=== PATIENT | male | born 1945 | race Hispanic/Latino ===

== ENCOUNTER 2017-08-14 23:44 | Emergency (ER) | payer BC ==
[2017-08-14 23:44] VITALS: BMI 10.8
[2017-08-14 23:48] VITALS: BP 143/77; PULSE 101; RESP 16; O2SAT 96
--- NOTE | 2017-08-15 00:31 | ED PDOC ---
HPI: Trauma/Fall - HPI Time Seen by Provider: 08/14/17 23:50 Chief Complaint (Nursing): Trauma Past Medical History Vital Signs: Last Vital Signs Temp Pulse 101 H 08/14/17 23:45 Resp 16 08/14/17 23:45 BP 143/77 08/14/17 23:45 Pulse Ox 96 08/14/17 23:45 - Medical History PMH: Arthritis, HTN Denies: Chronic Kidney Disease - Surgical History Surgical History: Appendectomy - Home Medications Home Medications: Ambulatory Orders Medication Instructions Recorded Acetaminophen/Oxycodone Hydr 1 tab PO Q4H PRN #0 tab 08/20/14 [Percocet 10/325 mg Tab] Atenolol [Tenormin] 50 mg PO Q48H #0 tab 08/20/14 Atenolol [Tenormin] 100 mg PO Q48H #0 tab 08/20/14 Ca Pantothenate/Folic Acid/V [Once 1 tab PO DAILY #0 tab 08/20/14 Daily Multi-Vitamin] Docusate Sodium [Colace] 100 mg PO BID #0 sgl 08/20/14 Finasteride 5 mg PO DAILY #0 tab 08/20/14 Ibuprofen [Motrin Tab] 800 mg PO TID PRN #0 tab 08/20/14 Liver Function Complete 1 tab PO DAILY #0 08/20/14 Milk Thistle Extract 250 mg PO DAILY #0 cap 08/20/14 [place]-3 Fatty Acids/Fish Oil [Fish 2,000 mg PO DAILY #0 sgl 08/20/14 Oil 1,000 mg Capsule] Prevagen 1 cap PO DAILY #0 08/20/14 Silodosin [Rapaflo] 8 mg PO DAILY #0 cap 08/20/14 Alfuzosin HCl [Uroxatral] 10 mg PO HS 08/05/15 Clopidogrel [Plavix] 75 mg PO DAILY #0 tab 08/07/15 Meclizine [Antivert] 25 mg PO Q8H #0 tab 08/07/15 Tamsulosin [Flomax] 0.8 mg PO HS #0 cap 08/07/15 traMADol [Ultram] 50 mg PO Q4 PRN #0 tab 08/07/15 - Allergies Allergies/Adverse Reactions: Allergies Allergy/AdvReac Type Severity Reaction Status Date / Time aspirin Allergy ANAPHYLAXIS Verified 08/15/17 00:05 Penicillins Allergy RASH Verified 08/15/17 00:05 - ECG O2 Sat by Pulse Oximetry: 96 Medical Decision Making Medical Decision Making: Time: 23:58 Plan: - CT Maxillofacial w/o Contrast Scribe Attestation: Documented by Akash Saenz, acting as a scribe for Ray Camacho MD Provider Scribe Attestation: All medical record entries made by the Scribe were at my direction and personally dictated by me. I have reviewed the chart and agree that the record accurately reflects my personal performance of the history, physical exam, medical decision making, and the department course for this patient. I have also personally directed, reviewed, and agree with the discharge instructions and disposition. Disposition - Disposition
[2017-08-15] MEDS ORDERED: Lidocaine 2% w Epi 1:100,000 Inj IJ ONE (00:51)
--- NOTE | 2017-08-15 01:18 | ED PDOC ---
HPI: Trauma/Fall - HPI Time Seen by Provider: 08/14/17 23:50 Chief Complaint (Nursing): Trauma Chief Complaint (Provider): Trauma History Per: Patient History/Exam Limitations: no limitations Onset/Duration Of Symptoms: Days (x tonight) Additional Complaint(s): Bryce is a 72 year old male who presents to the emergency department with facial injury s/p fall. Patient states he tripped over dog and fell on his nose and was unable to brace himself on time. Denies loss of consciousness, vomiting and any other injuries. PMD: Kuldip Rand Past Medical History Reviewed: Historical Data, Nursing Documentation, Vital Signs Vital Signs: Last Vital Signs Temp Pulse 101 H 08/14/17 23:45 Resp 16 08/14/17 23:45 BP 143/77 08/14/17 23:45 Pulse Ox 96 08/14/17 23:45 - Medical History PMH: Arthritis, HTN Denies: Chronic Kidney Disease - Surgical History Surgical History: Appendectomy - Family History Family History: States: Unknown Family Hx - Home Medications Home Medications: Ambulatory Orders Medication Instructions Recorded Acetaminophen/Oxycodone Hydr 1 tab PO Q4H PRN #0 tab 08/20/14 [Percocet 10/325 mg Tab] Atenolol [Tenormin] 50 mg PO Q48H #0 tab 08/20/14 Atenolol [Tenormin] 100 mg PO Q48H #0 tab 08/20/14 Ca Pantothenate/Folic Acid/V [Once 1 tab PO DAILY #0 tab 08/20/14 Daily Multi-Vitamin] Docusate Sodium [Colace] 100 mg PO BID #0 sgl 08/20/14 Finasteride 5 mg PO DAILY #0 tab 08/20/14 Ibuprofen [Motrin Tab] 800 mg PO TID PRN #0 tab 08/20/14 Liver Function Complete 1 tab PO DAILY #0 08/20/14 Milk Thistle Extract 250 mg PO DAILY #0 cap 08/20/14 [place]-3 Fatty Acids/Fish Oil [Fish 2,000 mg PO DAILY #0 sgl 08/20/14 Oil 1,000 mg Capsule] Prevagen 1 cap PO DAILY #0 08/20/14 Silodosin [Rapaflo] 8 mg PO DAILY #0 cap 08/20/14 Alfuzosin HCl [Uroxatral] 10 mg PO HS 08/05/15 Clopidogrel [Plavix] 75 mg PO DAILY #0 tab 08/07/15 Meclizine [Antivert] 25 mg PO Q8H #0 tab 08/07/15 Tamsulosin [Flomax] 0.8 mg PO HS #0 cap 08/07/15 traMADol [Ultram] 50 mg PO Q4 PRN #0 tab 08/07/15 Clindamycin [Cleocin] 300 mg PO TID 7 Days cap 08/15/17 - Allergies Allergies/Adverse Reactions: Allergies Allergy/AdvReac Type Severity Reaction Status Date / Time aspirin Allergy ANAPHYLAXIS Verified 08/15/17 00:05 Penicillins Allergy RASH Verified 08/15/17 00:05 Review of Systems ROS Statement: Except As Marked, All Systems Reviewed And Found Negative ENT: Positive for: Other (facial injury s/p fall) Gastrointestinal: Negative for: Vomiting Psych: Negative for: Other (loss of consciousness) Physical Exam - Reviewed Nursing Documentation Reviewed: Yes Vital Signs Reviewed: Yes - Physical Exam Appears: Positive for: Well, Non-toxic, No Acute Distress Head Exam: Positive for: ATRAUMATIC, NORMAL INSPECTION, NORMOCEPHALIC Eye Exam: Positive for: EOMI, Normal appearance, PERRL ENT: Negative for: Normal ENT Inspection ((+): Nasal swelling with a 2 cm laceration noted) Neck: Positive for: Normal Cardiovascular/Chest: Positive for: Regular Rate, Rhythm Respiratory: Positive for: Normal Breath Sounds. Negative for: Respiratory Distress Gastrointestinal/Abdominal: Positive for: Normal Exam Back: Positive for: Normal Inspection. Negative for: L CVA Tenderness, R CVA Tenderness Extremity: Positive for: Normal ROM. Negative for: Deformity Neurologic/Psych: Positive for: Alert, Oriented - ECG O2 Sat by Pulse Oximetry: 96 (RA) Pulse Ox Interpretation: Normal Medical Decision Making Medical Decision Making: Time: 23:59 Impression: Nasal Trauma s/p fall Plan: - CT Maxillofacial without Contrast Time: 00:48 CT Maxillofacial without Contrast FINDINGS: Bones/joints: Comminuted nasal bone fracture. Soft tissues: Soft tissue defect and swelling overlying the bilaterally nares. Orbits: Preserved. Sinuses: Unremarkable. No air-fluid levels. IMPRESSION: Comminuted nasal bone fracture. Scribe Attestation: Documented by Akash Saenz, acting as a scribe for Ray Camacho MD Provider Scribe Attestation: All medical record entries made by the Scribe were at my direction and personally dictated by me. I have reviewed the chart and agree that the record accurately reflects my personal performance of the history, physical exam, medical decision making, and the department course for this patient. I have also personally directed, reviewed, and agree with the discharge instructions and disposition. Procedures - Laceration/Wound Repair Face Wound Length (cm): 2 (Nose) Irrigated w/ Saline (ccs): 100 (Normal Saline) Wound Repaired With: Sutures Suture Size/Type: 5:0 (Agitiated) Number of Sutures: 6 Wound Complexity: Simple Disposition - Clinical Impression Clinical Impression: Nasal bone fracture, Laceration - Disposition Referrals: Robel Tavares MD [Staff Provider] - Disposition Time: 01:35 Condition: IMPROVED Prescriptions: Clindamycin [Cleocin] 300 mg PO TID 7 Days cap Instructions: Care For Your Stitches (ED), Nasal Fracture (ED), Laceration (ED) Forms: [employer] (Greek)
[2017-08-15 01:37] VITALS: TEMP 97.2
--- NOTE | 2017-08-15 07:59 | CT ---
PROCEDURE: CT MAXILLOFACIAL BONES WITHOUT CONTRAST HISTORY: s/p fall, nasal injury COMPARISON: None TECHNIQUE: Contiguous axial CT images of the maxillofacial bones were obtained. Coronal and sagittal reformats were generated. Radiation dose: Total exam DLP = 730.88 mGy-cm. This CT exam was performed using one or more of the following dose reduction techniques: Automated exposure control, adjustment of the mA and/or kV according to patient size, and/or use of iterative reconstruction technique. FINDINGS: NASAL BONES: Minimally depressed comminuted fracture of the distal most segments of the nasal bones is appreciated approaching at the midline involving the bilateral frontal components. The maxillary component of nasal bones is intact without acute fracture. Limited local soft tissue edema is appreciated indicating acute or subacute timeframe. ORBITS: The orbits bilaterally appear unremarkable. PARANASAL SINUSES/ MASTOIDS: Clear. MAXILLA: Apical lucencies of prominent surrounding the left 3rd molar roots, which may be partially eroded, and additional lucencies are seen surrounding the roots of the 2nd and 3rd right molars. Findings may refer pleura reflect small abscesses. Clinically correlate further. MANDIBLE/ TEMPOROMANDIBULAR JOINTS: Small lucencies seen surrounding the right 3rd molar is roots also possibly representing small abscesses. SKULL BASE: Unremarkable. TEMPORAL BONES: Middle ears and mastoid grossly unremarkable. OTHER FINDINGS: None. IMPRESSION: Minimally depressed fractures of the nasal bones is appreciated at the midline with local soft tissue edema identified. No additional fractures seen throughout the facial bones. Multifocal molar dental disease as discussed above. Further clinical correlation advised.
== END 2017-08-15 01:45 | disposition home or self-care (01) ==
LOC: H.ER 23:44
DX: S02.2XXA Fracture of nasal bones, initial encounter for closed fracture (principal); W01.0XXA Fall on same level from slipping, tripping and stumbling without subsequent striking against object, initial encounter; Y92.89 Other specified places as the place of occurrence of the external cause; I10 Essential (primary) hypertension; Z88.0 Allergy status to penicillin